=== PATIENT | female | born 1995 | race Two or more races ===

== ENCOUNTER 2021-03-25 03:52 | Emergency (ER) | payer MEDICAID ==
[~2021-03-25] VITALS: Ht 170.2 cm; Wt 86.2 kg
--- NOTE | 2021-03-25 03:57 | NUR ---
called pt in wr x3. no one in waiting room at this time.
--- NOTE | 2021-03-25 04:15 | NUR ---
called lab for blood draw
--- NOTE | 2021-03-25 04:30 | NUR ---
URINE SENT TO LAB
--- NOTE | 2021-03-25 04:36 | NUR ---
XRAY DONE AT BEDSIDE
[2021-03-25 06:39] VITALS: BP 118/92
== END 2021-03-25 06:39 | disposition home or self-care (01) ==
LOC: ER 03:54
DX: O03.4 Incomplete spontaneous abortion without complication (principal); O9A.211 Injury, poisoning and certain other consequences of external causes complicating pregnancy, first trimester; S16.1XXA Strain of muscle, fascia and tendon at neck level, initial encounter; V49.49XA Driver injured in collision with other motor vehicles in traffic accident, initial encounter; Y93.89 Activity, other specified; Y92.413 State road as the place of occurrence of the external cause; Y99.8 Other external cause status
CPT/HCPCS: 36415; 72050-TC; 76805-TC; 84702-TC